=== PATIENT | female | born 1970 | race Caucasian/White ===

== ENCOUNTER 2017-05-22 17:15 | Observation (INO) | payer OTHER ==
[2017-05-22 17:23] VITALS: BMI 28.3
--- NOTE | 2017-05-22 17:24 | PDOC ---
Rapid Medical Evaluation Chief Complaint: Headache Medical Evaluation: Allergies Allergy/AdvReac Type Severity Reaction Status Date / Time No Known Allergies Allergy Verified 02/19/14 08:36 05/22/17 17:22 46 year old female occasional smoker, recently dx HTN and HLD, presenting with 3 days of unrelenting headache (unrelieved by sumatriptan rx by her doctor, no history of headaches before this), now with 30 mins of left facial numbness ( "severe") and left arm numbness ("some"). NIHSS=1 Ectopic x 3 BP 154/80 Code Alcantar activated 5:25p Discussed with Dr. Mckeon Escorted to CT To Main ED monitored bed for further eval
[2017-05-22] MEDS ORDERED: SODIUM CHLORIDE 1,000 ML IV SCH (17:30)
--- NOTE | 2017-05-22 17:49 | PDOC ---
Attending Attestation - HPI HPI: 05/22/17 20:02 The patient is a 46 year old female, with a significant past medical history of hypertension and hyperlipidemia, who presents to the emergency department with, gradual onset intermittent left sided headache for approx. 3 days and left sided facial numbness beginning 30 minutes ago. The patient states she went to her PMD for the same complaint of left sided headache on Friday (2 days ago) and was diagnosed with hypertension and prescribed sumatriptan. The patient states the left sided headache has been waxing and waning over the past couple days. However, she reports that earlier today she went to take a shower and suddenly began to feel dizzy along with left sided facial numbness which prompted her to come to the ED for evaluation. She denies any recent falls or loss of conciousness. The patient also reports a mild sternal chest discomfort that is worse with palpation. No hx similar sxs. Family hx significant for sudden in mom at age 42 for ""stroke or heart attack."" She denies recent fevers or chills. She denies recent nausea, vomit, diarrhea or constipation. She denies recent dysuria, frequency, urgency or hematuria. She denies recent palpitations or shortness of breath. She denies recent swelling or calf tenderness. Allergies: NKA Documentation prepared by Pete Bashir, acting as medical secretary for Ally Hinson MD. - Physicial Exam PE: 05/22/17 20:02 GENERAL: Awake, alert, and fully oriented, in no acute distress HEAD: No signs of trauma EYES: PERRLA, EOMI, sclera anicteric, conjunctiva clear ENT: Auricles normal inspection, hearing grossly normal, nares patent, oropharynx clear without exudates. Moist mucosa NECK: Normal ROM, supple, no lymphadenopathy, JVD, or masses LUNGS: Breath sounds equal, clear to auscultation bilaterally. No wheezes, and no crackles HEART: Regular rate and rhythm, normal S1 and S2, no murmurs, rubs or gallops. + sternal ttp inferiorly ABDOMEN: Soft, nontender, normoactive bowel sounds. No guarding, no rebound. No masses EXTREMITIES: Normal range of motion, no edema. No clubbing or cyanosis. No cords , erythema, or tenderness BACK: No midline spinal tenderness in cervical/thoracic/lumbar region NEUROLOGICAL: Normal speech, +decreased sensation L V1-V3, cranial nerves otherwise intact, negative pronator drift, 5/5 strength in all 4 extremities, normal sensation to light touch in all 4 extremities, normal cerebellar exam, normal gait, normal reflexes and tone SKIN: Warm, Dry, normal turgor, no rashes or lesions noted. <Pete Bashir - Last Filed: 05/22/17 20:02> - Resident Resident Name: Maryse Penningtonica - ED Attending Attestation I have performed the following: I have examined & evaluated the patient, The case was reviewed & discussed with the resident, I agree w/resident's findings & plan, Exceptions are as noted - Medical Decision Making 05/22/17 17:47 46yo F hx recently dx HTN p/w gradual onset L sided headache x3 days now a/w 30 mins of L facial numbness. Vitals with elevated BP. Exam with decreases sensation V1-V3. NIHSS 1. Pt evaluated by Dr. Mckeon, decision was made to hold off on TPA given low NIHSS. Likely atypical migraine although given some RF (HTN , early of pt's mother @42yo), will do a stroke work up and admit to obs. <Ally Hinson - Last Filed: 05/22/17 21:02> Discharge Disposition - Discharge Dispostion Admit: Yes <Ally Hinson - Last Filed: 05/22/17 21:02> - Diagnosis Facial numbness - Discharge Dispostion Condition at time of disposition: Stable - Referrals Referrals: Hillary Birmingham MD [Primary Care Provider] - - Patient Instructions - Post Discharge Activity Heart Score/ECG Review #1 05/22/17 19:09 Twelve-lead EKG was performed and reviewed by me. Normal sinus rhythm, rate 79. Normal axis and intervals. No ST elevations. <Ally Hinson - Last Filed: 05/22/17 21:02>
--- NOTE | 2017-05-22 18:16 | PDOC ---
History of Present Illness - General Chief Complaint: Headache Stated Complaint: MIGRAINE Time Seen by Provider: 05/22/17 17:37 - History of Present Illness Initial Comments: 05/22/17 18:12 46 y.o. female with a PMH of recently diagnosed HTN, migraines presents to ED c/ o 5 day h/o diffuse headache, L sided facial numbness as well as a 2-3 day h/o intermittent stabbing chest pain pain. Patient states her chest pain is intermittent, "stabbing" 4/10, non-radiating, unrelated to exertion, with no identifying triggering/relieving factors. She does endorse some subjective dyspnea with speaking and denies any lightheadness, palpitations. NKDA Surgical: B/L salpingectomy / to ectopic pregnancies Social: 2-3 cigarettes daily, no alcohol, social marijuana PMD:Dr. Birmingham 05/22/17 18:16 Past History - Past Medical History Allergies/Adverse Reactions: Allergies Allergy/AdvReac Type Severity Reaction Status Date / Time No Known Allergies Allergy Verified 05/22/17 17:23 Home Medications: Ambulatory Orders Sumatriptan Succinate 100 mg PO BID 05/22/17 COPD: No HTN: Yes Hypercholesterolemia: Yes Other medical history: Migrane - Suicide/Smoking/Psychosocial Hx Smoking History: Current every day smoker Number of Cigarettes Smoked Daily: 5 Information on smoking cessation initiated: Yes 'Breaking Loose' booklet given: 05/22/17 Hx Alcohol Use: No Drug/Substance Use Hx: No Substance Use Type: Marijuana Review of Systems - Review of Systems Constitutional: No: Chills, Fever HEENTM: No: Recent change in vision Respiratory: Yes: Shortness of Breath Cardiac (ROS): No: Chest Pain ABD/GI: No: Constipated, Diarrhea, Nausea, Vomiting : No: Burning, Dysuria Neurological: Yes: Headache, Numbness Psychiatric: No: Anxiety, Depression *Physical Exam - Vital Signs Last Vital Signs Temp Pulse Resp BP Pulse Ox 98.2 F 90 19 153/80 100 05/22/17 17:19 05/22/17 17:19 05/22/17 17:19 05/22/17 17:19 05/22/17 17:19 - Physical Exam General Appearance: Yes: Nourished, Appropriately Dressed HEENT: positive: EOMI, HARLEY. negative: Pharyngeal Erythema, Tonsillar Exudate, TM Bulging, TM Dull, TM Erythema Neck: positive: Trachea midline, Supple Respiratory/Chest: positive: Lungs Clear Cardiovascular: positive: S1, S2 Gastrointestinal/Abdominal: positive: Normal Bowel Sounds, Soft Musculoskeletal: positive: Other (reproducible tenderness @ subxiphoid) Extremity: positive: Normal Capillary Refill, Normal Inspection Integumentary: positive: Normal Color, Dry, Warm Neurologic: positive: Fully Oriented, Alert, Numbness (L sided facial numbness w /o facial droop), Finger to Nose, Confused ED Treatment Course - LABORATORY CBC & Chemistry Diagram: 05/22/17 18:52 05/22/17 18:52 Medical Decision Making - Medical Decision Making 05/22/17 18:17 46 y.o. female with headache, facial numbness and chest pain. Code pedroza activated in triage. NIHSS Stroke Scale 1. Head CT negative. As patient c/o chest pain, has h/o of maternal in 40's 2/2 to CVA will obtain Troponin, EKG, CXR. 05/22/17 22:16 Troponin (-) x1. Case d/w neurology, Dr. Mckeon, notes that patient's HALL likely 2/2 to Sumatriptan BID dosing, will admit patient for MRA/MRI. *DC/Admit/Observation/Transfer Diagnosis at time of Disposition: Facial numbness - Discharge Dispostion Condition at time of disposition: Stable - Referrals Referrals: Hillary Birmingham MD [Primary Care Provider] - - Patient Instructions - Post Discharge Activity
[2017-05-22] MEDS ORDERED: SODIUM CHLORIDE 1,000 ML IV STA (18:30)
[2017-05-22] MEDS ORDERED: ACETAMINOPHEN 500 MG TABLET (FP) PO ONE (18:30)
[2017-05-22] MEDS ORDERED: METOCLOPRAMIDE HCL INJECTION 10 MG/2 ML VIAL IVPUSH ONE (18:30)
[2017-05-22] MEDS ORDERED: METOCLOPRAMIDE HCL INJECTION 10 MG/2 ML VIAL ONE (18:56)
[2017-05-22] MEDS ORDERED: ACETAMINOPHEN 325 MG TABLET (FP) ONE (18:56)
[2017-05-22 19:02] LABS: BASO % 0.7 % (0-2.0); EOS % 1.8 % (0-4.5); HEMATOCRIT 41.7 % (32.4-45.2); HEMOGLOBIN 14.2 GM/dL (10.7-15.3); LYMPH % 32.6 % (8-40); MCHC 34.1 g/dl (32.0-36.0); MEAN CELL VOLUME 90.9 fl (80-96); MEAN PLT VOLUME 9.6 fl (7.5-11.1); MONO % 7.3 % (3.8-10.2); NEUT % 57.6 % (42.8-82.8); PLATELET COUNT 235 K/MM3 (134-434); RBC 4.59 M/mm3 (3.60-5.2); RDW 13.4 % (11.6-15.6); WHITE BLOOD COUNT 11.9 K/mm3 (4.0-10.0)
[2017-05-22 19:16] LABS: INR 0.96 (0.82-1.09); PROTHROMBIN TIME (PATIENT) 10.9 SEC (9.98-11.88)
[2017-05-22 19:32] LABS: ALBUMIN 3.8 g/dl (3.4-5.0); ANION GAP 6 (8-16); BILIRUBIN,TOTAL 0.4 mg/dL (0.2-1.0); BLOOD UREA NITROGEN 12 mg/dL (7-18); CALCIUM 8.4 mg/dL (8.5-10.1); CHLORIDE 108 mmol/L (98-107); CHOLESTEROL 223 mg/dL (50-200); CO2 25 mmol/L (21-32); CREATININE 0.6 mg/dL (0.55-1.02); GLUCOSE,RANDOM 87 mg/dL (74-106); LDL CHOLESTEROL (ONLY SJRH) 136 mg/dL (5-100); POTASSIUM 4.4 mmol/L (3.5-5.1); SGOT/AST 22 U/L (15-37); SGPT/ALT 44 U/L (12-78); SODIUM 139 mmol/L (136-145); TRIGLYCERIDES 282 mg/dL (35-160)
[2017-05-22 19:33] LABS: ALK PHOS 93 U/L (45-117); HDL CHOLESTEROL 49 mg/dL (40-60)
[2017-05-22] MEDS ORDERED: METOCLOPRAMIDE HCL INJECTION 10 MG/2 ML VIAL IVPUSH PRN (20:39)
--- NOTE | 2017-05-22 20:44 | HP ---
CHIEF COMPLAINT: headache with face numbness. PCP: Dr. Pop Birmingham HISTORY OF PRESENT ILLNESS: 46 yo F with PMHx of HTN, HLD and GERD who presented to the ER with, gradual onset intermittent left sided headache for approx. 3 days and subsequent left sided facial numbness . The patient states she went to her PMD for the same complaint of left sided headache on Friday (2 days ago) and was diagnosed with hypertension and migraines and prescribed amlodipine and Sumatriptan. The patient states the left sided headache has been waxing and waning over the past couple days. However, she reports that earlier today she went to take a shower and suddenly began to feel dizzy along with left sided facial numbness which prompted her to come to the ED for evaluation. HALL associated the nausea and NBNB vomiting. She denies any recent falls or loss of consciousness. The patient also reports a mild sternal chest discomfort that is worse with palpation. She denies urinary symtoms, SOB, abdominal pain, fever or chills. ER course was notable for: (1)CT head was negative for acute pathology. (2)Evaluated by Neuro. (3)MRI head and neck pending. Recent Travel:Denies PAST MEDICAL HISTORY:HTN,HLD PAST SURGICAL HISTORY:B/L salpingectomy 2/ to ectopic pregnancies Social History: Smokin-3 cigs/day Alcohol:denies Drugs: social marijuana Family History:Mother (sudden @ 42) Allergies No Known Allergies Allergy (Verified 05/22/17 17:23) HOME MEDICATIONS: Home Medications Medication Instructions Recorded Sumatriptan Succinate 100 mg PO BID 05/22/17 REVIEW OF SYSTEMS CONSTITUTIONAL: Absent: fever, chills, diaphoresis, generalized weakness, malaise, loss of appetite, weight change HEENT: +Facial Numbness. Absent: rhinorrhea, nasal congestion, throat pain, throat swelling, difficulty swallowing, mouth swelling, ear pain, eye pain, visual changes CARDIOVASCULAR: Absent: chest pain, syncope, palpitations, irregular heart rate, lightheadedness , peripheral edema RESPIRATORY: Absent: cough, shortness of breath, dyspnea with exertion, orthopnea, wheezing, stridor, hemoptysis GASTROINTESTINAL: Absent: abdominal pain, abdominal distension, nausea, vomiting, diarrhea, constipation, melena, hematochezia GENITOURINARY: Absent: dysuria, frequency, urgency, hesitancy, hematuria, flank pain, genital pain MUSCULOSKELETAL: Absent: myalgia, arthralgia, joint swelling, back pain, neck pain SKIN: Absent: rash, itching, pallor HEMATOLOGIC/IMMUNOLOGIC: Absent: easy bleeding, easy bruising, lymphadenopathy, frequent infections ENDOCRINE: Absent: unexplained weight gain, unexplained weight loss, heat intolerance, cold intolerance NEUROLOGIC: Absent: headache, focal weakness or paresthesias, dizziness, unsteady gait, seizure, mental status changes, bladder or bowel incontinence PSYCHIATRIC: Absent: anxiety, depression, suicidal or homicidal ideation, hallucinations. PHYSICAL EXAMINATION Vital Signs - 24 hr 05/22/17 05/22/17 17:19 18:00 Temperature 98.2 F Pulse Rate 90 Pulse Rate [ 79 Apical] Respiratory 19 18 Rate Blood Pressure 153/80 Blood Pressure 151/78 [Left Arm] O2 Sat by Pulse 100 99 Oximetry (%) GENERAL: AAOx3, NAD HEAD: NC/AT EYES: PERRLA, EOMI, anicteric sclera. EARS, NOSE, THROAT: Moist mucous membranes. NECK: supple, No JVD LUNGS: CTAB, No wheezing or rales. HEART: RRR, NL S1S2, no m/g/r ABDOMEN: Soft, NT/ND, NL BS, no guarding, no rebound, no masses. No hepatomegaly or splenomegaly. MUSCULOSKELETAL: No CVA tenderness. UPPER EXTREMITIES: 2+ pulses, warm, well-perfused. No cyanosis. No clubbing. No peripheral edema. LOWER EXTREMITIES: 2+ pulses, warm, well-perfused. No calf tenderness. No peripheral edema. NEUROLOGICAL: Cranial nerves II-XII intact. Normal speech. 5/5 strength Upper and lower ext. bilat. PSYCHIATRIC: Cooperative. Good eye contact. Appropriate mood and affect. Laboratory Results - last 24 hr 05/22/17 05/22/17 05/22/17 18:52 18:52 18:52 WBC 11.9 H RBC 4.59 Hgb 14.2 Hct 41.7 MCV 90.9 MCH 31.0 MCHC 34.1 RDW 13.4 Plt Count 235 D MPV 9.6 Neutrophils % 57.6 Lymphocytes % 32.6 D Monocytes % 7.3 Eosinophils % 1.8 Basophils % 0.7 PT with INR 10.90 INR 0.96 Sodium 139 Potassium 4.4 Chloride 108 H Carbon Dioxide 25 Anion Gap 6 L BUN 12 Creatinine 0.6 Creat Clearance w eGFR > 60 Random Glucose 87 Calcium 8.4 L Total Bilirubin 0.4 AST 22 ALT 44 Alkaline Phosphatase 93 Creatine Kinase 136 Troponin I < 0.02 Total Protein 7.0 Albumin 3.8 Triglycerides 282 H Cholesterol 223 H Total LDL Cholesterol 136 H HDL Cholesterol 49 Blood Type Antibody Screen 05/22/17 18:52 WBC RBC Hgb Hct MCV MCH MCHC RDW Plt Count MPV Neutrophils % Lymphocytes % Monocytes % Eosinophils % Basophils % PT with INR INR Sodium Potassium Chloride Carbon Dioxide Anion Gap BUN Creatinine Creat Clearance w eGFR Random Glucose Calcium Total Bilirubin AST ALT Alkaline Phosphatase Creatine Kinase Troponin I Total Protein Albumin Triglycerides Cholesterol Total LDL Cholesterol HDL Cholesterol Blood Type O NEGATIVE Antibody Screen Negative ASSESSMENT/PLAN: 46 yo F with PMHx of HTN and HLD presents with new onset facial numbness and placed on observation for possible CVA vs. migraine. Problem List - Problem (1) Migraine Assessment/Plan: * Neuro consult Dr. Mckeon. * triptan held * IVF with NS * Reglan 10mg Q6H PRN * Neuro checks. * CT and MRI of head negative for acute pathology. (2) Facial numbness (3) HTN (hypertension) Assessment/Plan: Will continue Amlodipine 5mg PO daily. (4) HLD (hyperlipidemia) Assessment/Plan: Statin therpy with Lipitor 40mg HS (5) DVT prophylaxis Assessment/Plan: Will initiate heparin SQ TID> Visit type - Emergency Visit Emergency Visit: Yes ED Registration Date: 05/22/17 Care time: The patient presented to the Emergency Department on the above date and was hospitalized for further evaluation of their emergent condition. - New Patient This patient is new to me today: Yes Date on this admission: 05/23/17 - Critical Care Critical Care patient: No Hospitalist Screening - Colonoscopy Questionnaire Colonoscopy Questionnaire: Colonoscopy Questionnaire - Patient: 50 - 75 years old and never had a screening colonoscopy: No History of colon or rectal polyps, or CA: No History of IBD, Crohn's disease or UC: No History of abdominal radiation therapy as a child: No - Relative: 1 with colon or rectal CA, or polyps at age 60 or younger: No Colon or rectal CA diagnosed at age 45 or younger: No Multiple relatives with colon or rectal CA: No - Outcome: Screening Result: Negative Screen
--- NOTE | 2017-05-22 22:29 | PDOC ---
NIH Stroke Scale - Initial Evaluation Level of consciousness: Alert Ask patient the month and their age: Answers both correctly Ask patient to open & close eyes; make fist and let go: Obeys both correctly Best gaze (horizontal eye movement): Normal Visual field testing: No visual field loss Facial paresis (Show teeth/raise eyebrows/close eyes tight): Normal symmetrical movement Motor Function: Left Arm: Normal Motor Function: Right Arm: Normal (extends arm 90 (or 45) degrees for 10 seconds without drift Motor Function: Left Leg: Normal (extends leg 30 degrees for 5 seconds without drift) Motor Function: Right Leg: Normal (extends leg 30 degrees for 5 seconds without drift) Limb Ataxia: No ataxia Sensory(Use pinprick test arms,legs,trunk,face/side to side): Mild to moderate decrease in sensation Best language (Describe picture, name items, read sentences): No Aphasia Dysarthria (read several words): Normal articulation Extinction and Inattention: No abnormality - Total Score NIH Stroke Scale Score: 1
[2017-05-23] MEDS: ACETAMINOPHEN 325 MG TABLET (FP) PO PRN ×3 (02:00→11:23)
--- NOTE | 2017-05-23 03:25 | PN ---
Teaching Attending Note Name of Resident: Amauri Atkinson ATTENDING PHYSICIAN STATEMENT I saw and evaluated the patient. I reviewed the resident's note and discussed the case with the resident. I agree with the resident's findings and plan as documented. SUBJECTIVE: 46F with headache worsening over past 3 days, taking triptans twice a day, now presents with L face and arm numbness OBJECTIVE: Neuro: non focal exam, Cranial nerves no defecits MRI brain MRA : no acute findings ASSESSMENT AND PLAN: 46F with continued headache and sensation of numbness on left face possibly secondary to complicated migraine. CVA ruled out follow up with Neurology in AM to optimize management of her migrain and possible discharge after.
[2017-05-23 07:18] LABS: BASO % 0.7 % (0-2.0); EOS % 1.9 % (0-4.5); HEMATOCRIT 40.6 % (32.4-45.2); HEMOGLOBIN 13.9 GM/dL (10.7-15.3); LYMPH % 26.3 % (8-40); MCHC 34.2 g/dl (32.0-36.0); MEAN CELL VOLUME 90.7 fl (80-96); MEAN PLT VOLUME 9.8 fl (7.5-11.1); MONO % 7.3 % (3.8-10.2); NEUT % 63.8 % (42.8-82.8); PLATELET COUNT 209 K/MM3 (134-434); RBC 4.48 M/mm3 (3.60-5.2); RDW 13.5 % (11.6-15.6); WHITE BLOOD COUNT 8.5 K/mm3 (4.0-10.0)
[2017-05-23 08:28] LABS: CHLORIDE 109 mmol/L (98-107); SODIUM 140 mmol/L (136-145)
[2017-05-23 08:40] LABS: ALBUMIN 3.5 g/dl (3.4-5.0); ALK PHOS 82 U/L (45-117); ANION GAP 9 (8-16); BILIRUBIN,TOTAL 0.8 mg/dL (0.2-1.0); BLOOD UREA NITROGEN 11 mg/dL (7-18); CALCIUM 8.1 mg/dL (8.5-10.1); CO2 22 mmol/L (21-32); CREATININE 0.5 mg/dL (0.55-1.02); GLUCOSE,RANDOM 93 mg/dL (74-106); MAGNESIUM 2.1 mg/dL (1.8-2.4); PHOSPHOROUS 2.7 mg/dL (2.5-4.9); SGOT/AST 14 U/L (15-37); SGPT/ALT 36 U/L (12-78); TOT PROT 6.3 g/dl (6.4-8.2)
[2017-05-23 09:12] VITALS: BP 116/73; PULSE 70; TEMP 98
[2017-05-23 09:42] LABS: URINE APPEARANCE SLCLOUDY; URINE BILIRUBIN NEGATIVE (NEGATIVE); URINE BLOOD 1+ (NEGATIVE); URINE COLOR YELLOW; URINE GLUCOSE (UA) NEGATIVE (NEGATIVE); URINE KETONE NEGATIVE (NEGATIVE); URINE LEUK ESTERASE TRACE (NEGATIVE); URINE NITRITE NEGATIVE (NEGATIVE); URINE PROTEIN NEGATIVE (NEGATIVE)
[2017-05-23 09:56] LABS: EPI CELLS MANY /HPF (FEW); URINE MUCUS RARE
[2017-05-23] MEDS ORDERED: PANTOPRAZOLE 40 MG TABLET (FP) PO SCH (10:00)
[2017-05-23] MEDS ORDERED: amLODIPine BESYLATE 5 MG TABLET (FP) PO SCH (10:00)
[2017-05-23] MEDS ORDERED: ENOXAPARIN NA (PORCINE) 40 MG/0.4 ML DISP.SYRIN SQ SCH (10:00)
--- NOTE | 2017-05-23 10:28 | EKG ---
Test Reason : Blood Pressure : / mmHG Vent. Rate : 071 BPM Atrial Rate : 071 BPM P-R Int : 174 ms QRS Dur : 086 ms QT Int : 418 ms P-R-T Axes : 054 052 042 degrees QTc Int : 454 ms NORMAL SINUS RHYTHM NORMAL ECG WHEN COMPARED WITH ECG OF 22-MAY-2017 18:52, NO SIGNIFICANT CHANGE WAS FOUND Confirmed by CLAUDE MORRIS MD ([id number]) on 05/23/2017 10:28:43 AM Referred By: Confirmed By:CLAUDE MORRIS MD
--- NOTE | 2017-05-23 10:40 | EKG ---
Test Reason : Blood Pressure : / mmHG Vent. Rate : 079 BPM Atrial Rate : 079 BPM P-R Int : 178 ms QRS Dur : 090 ms QT Int : 412 ms P-R-T Axes : 016 037 025 degrees QTc Int : 472 ms NORMAL SINUS RHYTHM NO PREVIOUS ECGS AVAILABLE Confirmed by CLAUDE MORRIS MD ([id number]) on 05/23/2017 10:40:02 AM Referred By: Confirmed By:CLAUDE MORRIS MD
--- NOTE | 2017-05-23 12:16 | PN ---
Progress Note, Physician Chief Complaint: patient seen and examined says he facial numbness slightly better but still has HALL awaiting neurology to see her wants to go home - Current Medication List Current Medications: Active Medications Acetaminophen (Tylenol -) 650 mg PO Q4H PRN PRN Reason: PAIN Last Admin: 05/23/17 11:23 Dose: 650 mg Amlodipine Besylate (Norvasc -) 5 mg PO DAILY [facility] Last Admin: 05/23/17 09:20 Dose: 5 mg Enoxaparin Sodium (Lovenox -) 40 mg SQ DAILY [facility] Last Admin: 05/23/17 09:19 Dose: 40 mg Metoclopramide HCl (Reglan Injection -) 10 mg IVPUSH Q6H PRN PRN Reason: NAUSEA AND/OR VOMITING Pantoprazole Sodium (Protonix -) 40 mg PO DAILY [facility] Last Admin: 05/23/17 09:20 Dose: 40 mg - Objective Vital Signs: Vital Signs Temperature 98 F 05/23/17 09:00 Pulse Rate 70 05/23/17 09:00 Respiratory Rate 20 05/23/17 09:00 Blood Pressure 116/73 05/23/17 09:00 O2 Sat by Pulse Oximetry (%) 99 05/22/17 18:00 Constitutional: Yes: Calm Neck: Yes: Trachea Midline Cardiovascular: Yes: Regular Rate and Rhythm, S1, S2 Respiratory: Yes: CTA Bilaterally Gastrointestinal: Yes: Normal Bowel Sounds, Soft Edema: No Neurological: Yes: Alert, Oriented, Other (facial sensation same on both sides motor strenght is intact,) Labs: CBC, BMP 05/23/17 06:15 05/23/17 06:15 INR, PTT INR 0.96 (0.82-1.09) 05/22/17 18:52 Problem List - Problems (1) Facial numbness Assessment/Plan: awaiting neurology input MRI/MRA negative Code(s): R20.0 - ANESTHESIA OF SKIN (2) Migraine Assessment/Plan: neurology evaluation once seen by neurology lil[place] home later today Code(s): G43.909 - MIGRAINE, UNSP, NOT INTRACTABLE, WITHOUT STATUS MIGRAINOSUS Qualifiers: Migraine type: without aura Status migrainosus presence: without status migrainosus Intractability: not intractable Qualified Code(s): G43.009 - Migraine without aura, not intractable, without status migrainosus (3) HTN (hypertension) Assessment/Plan: [facility] Code(s): I10 - ESSENTIAL (PRIMARY) HYPERTENSION Qualifiers: Hypertension type: essential hypertension Qualified Code(s): I10 - Essential (primary) hypertension
--- NOTE | 2017-05-23 13:31 | DS ---
Physical Examination Vital Signs: Vital Signs Temperature 98 F 05/23/17 09:00 Pulse Rate 70 05/23/17 09:00 Respiratory Rate 20 05/23/17 09:00 Blood Pressure 116/73 05/23/17 09:00 O2 Sat by Pulse Oximetry (%) 99 05/22/17 18:00 Cardiovascular: Yes: Regular Rate and Rhythm, S1, S2 Respiratory: Yes: CTA Bilaterally Gastrointestinal: Yes: Normal Bowel Sounds, Soft Edema: No Neurological: Yes: Alert, Oriented Labs: CBC, BMP 05/23/17 06:15 05/23/17 06:15 Discharge Summary Reason For Visit: NUMBNESS OF FACE Current Active Problems DVT prophylaxis (Acute) Facial numbness (Acute) HLD (hyperlipidemia) (Acute) HTN (hypertension) (Acute) Migraine (Acute) Hospital Course: CHIEF COMPLAINT: headache with face numbness. PCP: Dr. Pop Birmingham HISTORY OF PRESENT ILLNESS: 46 yo F with PMHx of HTN, HLD and GERD who presented to the ER with, gradual onset intermittent left sided headache for approx. 3 days and subsequent left sided facial numbness . The patient states she went to her PMD for the same complaint of left sided headache on Friday (2 days ago) and was diagnosed with hypertension and migraines and prescribed amlodipine and Sumatriptan. The patient states the left sided headache has been waxing and waning over the past couple days. However, she reports that earlier today she went to take a shower and suddenly began to feel dizzy along with left sided facial numbness which prompted her to come to the ED for evaluation. HALL associated the nausea and NBNB vomiting. She denies any recent falls or loss of consciousness. The patient also reports a mild sternal chest discomfort that is worse with palpation. She denies urinary symtoms, SOB, abdominal pain, fever or chills. ER course was notable for: (1)CT head was negative for acute pathology. (2)Evaluated by Neuro. (3)MRI head and neck pending. Recent Travel:Denies PAST MEDICAL HISTORY:HTN,HLD PAST SURGICAL HISTORY:B/L salpingectomy 2/ to ectopic pregnancies patient got MRI/MRA of head and neck and was negative was supposed to see neurology put just walked out Condition: Stable - Instructions Referrals: Hillary Birmingham MD [Primary Care Provider] - Disposition: ELOPED - Home Medications Comprehensive Discharge Medication List: Ambulatory Orders Amlodipine Besylate 5 mg PO DAILY 05/22/17 Omeprazole 40 mg PO DAILY 05/22/17 Sumatriptan Succinate 100 mg PO BID 05/22/17
[2017-05-23] MEDS ORDERED: OMEGA-3 ACID ETHYL ESTERS (FATTY-ACIDS) 1 GM CAPSULE (FP) PO SCH (22:00)
== END 2017-05-23 13:38 | disposition left against medical advice (07) ==
LOC: JER 17:15 → JERBED 21:02 → J4S 05-23 02:06 → J4W 05-23 12:41
PROVIDERS: ADMIT Internal Medicine; ATTEND Internal Medicine
PROC: 3E033GC Introduction of Other Therapeutic Substance into Peripheral Vein, Percutaneous Approach (ICD-10-PCS; principal; 2017-05-22)
PROC: 3E013GC Introduction of Other Therapeutic Substance into Subcutaneous Tissue, Percutaneous Approach (ICD-10-PCS; 2017-05-22)
PROC: 3E0337Z Introduction of Electrolytic and Water Balance Substance into Peripheral Vein, Percutaneous Approach (ICD-10-PCS; 2017-05-22)
DX: R20.0 Anesthesia of skin (principal); G43.909 Migraine, unspecified, not intractable, without status migrainosus; I10 Essential (primary) hypertension; E78.5 Hyperlipidemia, unspecified
CPT/HCPCS: 36415; 70450-TC; 70544-TC; 70547-TC; 70551-TC; 80053; 81003; 81015; 82465; 82550; 83718; 83721; 83735; 84100; 84478; 84484; 84703; 85025; 85610; 86850; 86900; 86901; 93005; 93010; 96361; 96372; 96374; 99285-25; G0378; J7030

== ENCOUNTER 2018-09-06 10:36 | Observation (INO) | payer OTHER ==
[2018-09-06 10:44] VITALS: BMI 30.7
--- NOTE | 2018-09-06 10:47 | PDOC ---
Attending Attestation - Resident Resident Name: Naty Pennington - ED Attending Attestation I have performed the following: I have examined & evaluated the patient, The case was reviewed & discussed with the resident, I agree w/resident's findings & plan, Exceptions are as noted - HPI HPI: 09/06/18 11:32 48yo female with hx of smoking tobacco and htn presents with cp that woke her up this am. CP assoc with radiation to R arm and back, sob, diaphoresis (clammy feeling) and 8 episodes of nbnb vomiting. Pt states she still has cp and feels nauseated. Pt denies pleuritic component. States she saw her PMD Dr. Santos a month ago for palpitation/fluttering sensation and told to see a card lacer jacquard. Pt states she ate m[place] food last night, ate the same thing and is not sick. CP started before the vomiting. Pt states pain goes straight to her back, pressure sensation. Fam hx of mother of UT in her early 40s and father of UT at 70. Pt denies abd pain. Had normal bm today. No pain to jaw or neck. 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
--- NOTE | 2018-09-06 10:47 | PDOC ---
History of Present Illness - General Chief Complaint: Nausea/Vomiting Stated Complaint: CHEST PAIN Time Seen by Provider: 09/06/18 10:46 History Source: Patient - History of Present Illness Initial Comments: 09/06/18 11:01 The patient is a 48 year old female with a PMH of HTN, Migraines, GERD and Anxiety who presents to the ED c/o acute onset of chest pain with vomiting. Pain started at 7 a.m. this morning and is L sided, pressure-like and radiates to her back. Pain is improved when patient stands upright and leans forward. Endorses intermittent shortness of breath. No previous h/o evaluation by a infection control nurse, but states she was given a referral to a infection control nurse because she sometimes feel like her heart beat is not normal. Smokes 7 cigarettes daily. Family history significant for maternal from [place] @ age 42. NKDA Surgical: B/L tubal removal s/p ectopic Social: daily cigarettes, daily marijuana PMD: Dr. Valarie Santos Past History - Past Medical History Allergies/Adverse Reactions: Allergies Allergy/AdvReac Type Severity Reaction Status Date / Time No Known Allergies Allergy Verified 05/22/17 17:23 Home Medications: Ambulatory Orders Amlodipine Besylate 5 mg PO DAILY 05/22/17 Omeprazole 40 mg PO DAILY 05/22/17 Sumatriptan Succinate 100 mg PO BID 05/22/17 COPD: No GI Disorders: Yes (GERD) HTN: Yes Hypercholesterolemia: Yes - Suicide/Smoking/Psychosocial Hx Smoking History: Current every day smoker Number of Cigarettes Smoked Daily: 7 Information on smoking cessation initiated: No 'Breaking Loose' booklet given: 05/22/17 Hx Alcohol Use: No Drug/Substance Use Hx: No Substance Use Type: Marijuana Review of Systems - Review of Systems Constitutional: No: Chills, Fever HEENTM: No: Recent change in vision Respiratory: Yes: Shortness of Breath Cardiac (ROS): Yes: Chest Pain ABD/GI: Yes: Nausea, Vomiting. No: Constipated, Diarrhea *Physical Exam - Vital Signs Last Vital Signs Temp Pulse Resp BP Pulse Ox 97.8 F 67 18 169/87 99 09/06/18 10:41 09/06/18 10:41 09/06/18 10:41 09/06/18 10:41 09/06/18 10:41 - Physical Exam General Appearance: Yes: Nourished, Appropriately Dressed HEENT: positive: Normal Voice, Hearing Grossly Normal Neck: positive: Trachea midline, Supple Respiratory/Chest: positive: Lungs Clear, Normal Breath Sounds. negative: Labored Respiration, Rapid RR, Wheezing Cardiovascular: positive: S1, S2. negative: Edema, Murmur Vascular Pulses: Dorsalis-Pedis (R): 2+, Doralis-Pedis (L): 0 Gastrointestinal/Abdominal: positive: Normal Bowel Sounds, Soft Musculoskeletal: negative: CVA Tenderness (R), CVA Tenderness (L) Extremity: positive: Normal Capillary Refill, Normal Inspection, Normal Range of Motion Integumentary: positive: Normal Color, Dry, Warm Neurologic: positive: patient services coordinator II-XII NML intact, Fully Oriented, Alert Heart Score/ECG Review - ECG Impressions Comment:: 09/06/18 12:06 HR 61, normal intervals, no deviations, no RYANNE/STD/TWI - non-ischemic EKG ED Treatment Course - LABORATORY CBC & Chemistry Diagram: 09/06/18 11:15 09/06/18 11:15 Medical Decision Making - Medical Decision Making 09/06/18 11:06 48 year old female with acute onset of chest pain that radiates to her back BP symmetrical w/in 20 mm Hg in B/L UE Will obtain CTA chest to r/o Aortic Dissection, 09/06/18 11:10 EKG non-ischemic as documtented in EKG section of EMR 09/06/18 12:05 Troponin (-) x1 09/06/18 12:10 Patient reassessed @ bedside Symptomatically improved, however still c/o nausea 09/06/18 15:04 My read of CTA shows no aortic dissection At this time, patient HDS, Heart Score 5, requires admission for serial troponins, cardiac evaluation including [facility]. Hospitalist paged for admission 09/06/18 15:11 Case d/w Dr. Cook, will admit OBS Tele 09/06/18 15:18 Patient reassessed @ bedside Amenable to admission Clinical Impression: Chest Pain, possibly 2/2 to ACS vs. Anginal picture 09/06/18 16:19 Patient evaluated by Hospitalist in ED, states she wishes to AMA. 09/06/18 16:23 The patient is clinically sober, free from distracting injury, appears to have intact insight and judgment and reason and in my opinion has the capacity to make decisions. The patient presents with chest pain. I have explained that I am concerned that this may represent a heart attack,she has verbalized an understanding of my concerns. I have discussed the need for admission to get more information about potential causes of the patients chest pain. I have told the patient that if she leaves and has worsening cgest, she could get much worse, could become critically ill, and could possibly become disabled or . I have asked her to stay in the hospital for monitoring. The patient is refusing any further care and is leaving against medical advice. I am unable to convince the patient to stay, I have asked her to return as soon as possible to complete her evaluation. I have answered all of patient's questions. *DC/Admit/Observation/Transfer Diagnosis at time of Disposition: Chest pain - Discharge Dispostion Disposition: AGAINST MEDICAL ADVICE Condition at time of disposition: Stable Decision to Admit order: No - Referrals - Patient Instructions - Post Discharge Activity
[2018-09-06] MEDS ORDERED: MORPHINE SULFATE 2 MG/ML VIAL ONE (11:37)
[2018-09-06] MEDS ORDERED: ONDANSETRON 4 MG/2 ML VIAL ONE (11:39)
[2018-09-06] MEDS: SODIUM CHLORIDE 0.9% 500 ML INFUS.BAG IV ONE ×2 (11:40→15:45)
[2018-09-06 11:45] LABS: BASO % 0.6 % (0-2.0); EOS % 0.8 % (0-4.5); HEMOGLOBIN 14.5 GM/dL (10.7-15.3); LYMPH % 22.7 % (8-40); MCH 30.2 pg (25.7-33.7); MCHC 33.6 g/dl (32.0-36.0); MEAN CELL VOLUME 89.8 fl (80-96); MONO % 4.1 % (3.8-10.2); NEUT % 71.8 % (42.8-82.8); RBC 4.79 M/mm3 (3.60-5.2); RDW 13.3 % (11.6-15.6); WHITE BLOOD COUNT 14.4 K/mm3 (4.0-10.0)
[2018-09-06 11:47] LABS: PLATELET COUNT 211 K/MM3 (134-434)
[2018-09-06 11:48] LABS: ALBUMIN 3.7 g/dl (3.4-5.0); ALK PHOS 106 U/L (45-117); ANION GAP 6 MMOL/L (8-16); BILIRUBIN,TOTAL 0.2 mg/dL (0.2-1); BLOOD UREA NITROGEN 9.8 mg/dL (7-18); CHLORIDE 108 mmol/L (98-107); CO2 26 mmol/L (21-32); CREATININE 0.7 mg/dL (0.55-1.3); GLUCOSE,RANDOM 98 mg/dL (74-106); POTASSIUM 4.2 mmol/L (3.5-5.1); SGOT/AST 16 U/L (15-37); SGPT/ALT 39 U/L (13-61); SODIUM 140 mmol/L (136-145); TOT PROT 6.7 g/dl (6.4-8.2)
[2018-09-06] MEDS: morphine CARPU-JECT 2 MG/1 ML DISP.SYRIN IVPUSH ONE ×2 (11:48→15:44)
[2018-09-06] MEDS: ONDANSETRON 4 MG/2 ML VIAL IVPUSH ONE ×4 (11:50→15:45)
[2018-09-06] MEDS: FAMOTIDINE 20 MG/50 ML IVPB 20 MG/50 ML MG IVPB ONE ×2 (11:53→15:45)
[2018-09-06 12:05] LABS: INR 0.9 (0.83-1.09); PROTHROMBIN TIME (PATIENT) 10.6 SEC (9.7-13.0)
[2018-09-06] MEDS ORDERED: ASPIRIN 81 MG CHEWABLE TABLETS PO ONE (15:25)
[2018-09-06] MEDS ORDERED: ASPIRIN COATED 81 MG TABLET.EC ONE (15:48)
[2018-09-06 16:15] VITALS: BP 150/86; PULSE 57; TEMP 98.6
--- NOTE | 2018-09-06 16:25 | HP ---
CHIEF COMPLAINT: chest pains for few days PCP:dr rodriguez HISTORY OF PRESENT ILLNESS: The patient is a 48 year old female with a PMH of HTN, Migraines, GERD and Anxiety who presents to the ED c/o acute onset of chest pain with vomiting. Pain started at 7 a.m. this morning and is L sided, pressure-like and radiates to her back. Pain is improved when patient stands upright and leans forward. Endorses intermittent shortness of breath. No previous h/o evaluation by a care program director, but states she was given a referral to a care program director because she sometimes feel like her heart beat is not normal. Smokes 7 cigarettes daily. Family history significant for maternal from [place] @ age 42. She is pain free at this time ER course was notable for: (1)chest pains (2)normal cardiac enzymes (3)f/h of heart disease Recent Travel:none PAST MEDICAL HISTORY: The patient is a 48 year old female with a PMH of HTN, Migraines, GERD and Anxiety r PAST SURGICAL HISTORY: none Social History: Smoking:yes Alcohol:social Drugs: none Family History:mother at the age of 42 with heart problem Allergies No Known Allergies Allergy (Verified 05/22/17 17:23) HOME MEDICATIONS: Home Medications Medication Instructions Recorded Amlodipine Besylate 5 mg PO DAILY 05/22/17 Omeprazole 40 mg PO DAILY 05/22/17 Sumatriptan Succinate 100 mg PO BID 05/22/17 REVIEW OF SYSTEMS CONSTITUTIONAL: Absent: fever, chills, diaphoresis, generalized weakness, malaise, loss of appetite, weight change HEENT: Absent: rhinorrhea, nasal congestion, throat pain, throat swelling, difficulty swallowing, mouth swelling, ear pain, eye pain, visual changes CARDIOVASCULAR: Absent: chest pain, syncope, palpitations, irregular heart rate, lightheadedness , peripheral edema RESPIRATORY: Absent: cough, shortness of breath, dyspnea with exertion, orthopnea, wheezing, stridor, hemoptysis GASTROINTESTINAL: Absent: abdominal pain, abdominal distension, nausea, vomiting, diarrhea, constipation, melena, hematochezia GENITOURINARY: Absent: dysuria, frequency, urgency, hesitancy, hematuria, flank pain, genital pain MUSCULOSKELETAL: Absent: myalgia, arthralgia, joint swelling, back pain, neck pain SKIN: Absent: rash, itching, pallor HEMATOLOGIC/IMMUNOLOGIC: Absent: easy bleeding, easy bruising, lymphadenopathy, frequent infections ENDOCRINE: Absent: unexplained weight gain, unexplained weight loss, heat intolerance, cold intolerance NEUROLOGIC: Absent: headache, focal weakness or paresthesias, dizziness, unsteady gait, seizure, mental status changes, bladder or bowel incontinence PSYCHIATRIC: Absent: anxiety, depression, suicidal or homicidal ideation, hallucinations. PHYSICAL EXAMINATION Vital Signs - 24 hr 09/06/18 09/06/18 10:41 16:14 Temperature 97.8 F 98.6 F Pulse Rate 67 Pulse Rate [ 57 L Left Apical] Respiratory 18 16 Rate Blood Pressure 169/87 Blood Pressure 150/86 [Right Arm] O2 Sat by Pulse 99 97 Oximetry (%) GENERAL: Awake, alert, and fully oriented, in no acute distress. HEAD: Normal with no signs of trauma. EYES: Pupils equal, round and reactive to light, extraocular movements intact, sclera anicteric, conjunctiva clear. No lid lag. EARS, NOSE, THROAT: Ears normal, nares patent, oropharynx clear without exudates. Moist mucous membranes. NECK: Normal range of motion, supple without lymphadenopathy, JVD, or masses. LUNGS: Breath sounds equal, clear to auscultation bilaterally. No wheezes, and no crackles. No accessory muscle use. HEART: Regular rate and rhythm, normal S1 and S2 without murmur, rub or gallop. ABDOMEN: Soft, nontender, not distended, normoactive bowel sounds, no guarding, no rebound, no masses. No hepatomegaly or splenomegaly. MUSCULOSKELETAL: Normal range of motion at all joints. No bony deformities or tenderness. No CVA tenderness. UPPER EXTREMITIES: 2+ pulses, warm, well-perfused. No cyanosis. No clubbing. No peripheral edema. LOWER EXTREMITIES: 2+ pulses, warm, well-perfused. No calf tenderness. No peripheral edema. NEUROLOGICAL: Cranial nerves II-XII intact. Normal speech. Normal gait. PSYCHIATRIC: Cooperative. Good eye contact. Appropriate mood and affect. SKIN: Warm, dry, normal turgor, no rashes or lesions noted, normal capillary refill. Laboratory Results - last 24 hr 09/06/18 09/06/18 09/06/18 11:15 11:15 11:15 WBC 14.4 H RBC 4.79 Hgb 14.5 Hct 43.0 MCV 89.8 MCH 30.2 MCHC 33.6 RDW 13.3 Plt Count 211 MPV 10.0 Absolute Neuts (auto) 10.3 H Neutrophils % 71.8 Lymphocytes % 22.7 Monocytes % 4.1 Eosinophils % 0.8 Basophils % 0.6 Nucleated RBC % 0 PT with INR INR Sodium 140 Potassium 4.2 Chloride 108 H Carbon Dioxide 26 Anion Gap 6 L BUN 9.8 Creatinine 0.7 Est GFR (CKD-EPI)AfAm 118.74 Est GFR (CKD-EPI)NonAf 102.45 Random Glucose 98 Calcium 10.0 Total Bilirubin 0.2 AST 16 ALT 39 Alkaline Phosphatase 106 Creatine Kinase 100 Troponin I < 0.02 Total Protein 6.7 Albumin 3.7 Serum , Qual Negative 09/06/18 11:40 WBC RBC Hgb Hct MCV MCH MCHC RDW Plt Count MPV Absolute Neuts (auto) Neutrophils % Lymphocytes % Monocytes % Eosinophils % Basophils % Nucleated RBC % PT with INR 10.60 INR 0.90 Sodium Potassium Chloride Carbon Dioxide Anion Gap BUN Creatinine Est GFR (CKD-EPI)AfAm Est GFR (CKD-EPI)NonAf Random Glucose Calcium Total Bilirubin AST ALT Alkaline Phosphatase Creatine Kinase Troponin I Total Protein Albumin Serum , Qual ASSESSMENT/PLAN: ches pain -pt has multiple risk factors , will admit for observation and will call cardiac consult if stress test positive pt is thinking about going home ama discussed the dangers with her start aspirin stress test am Htn -norvasc to continue Smoking cessation -discussed with patient about stop smoking. Visit type - Emergency Visit Emergency Visit: Yes ED Registration Date: 09/06/18 Care time: The patient presented to the Emergency Department on the above date and was hospitalized for further evaluation of their emergent condition. - New Patient This patient is new to me today: Yes Date on this admission: 09/06/18 - Critical Care Critical Care patient: No
[2018-09-06] MEDS ORDERED: ASPIRIN 81 MG CHEWABLE TABLETS PO SCH (16:30)
--- NOTE | 2018-09-06 18:32 | DS ---
Physical Exam: SUBJECTIVE: Patient seen and examined she is admitted for chest pains 1st set of enzymes are negative , ct of chest is negative and cxr OBJECTIVE: Vital Signs Period Temp Pulse Resp BP Sys/Weber Pulse Ox Last 24 Hr 97.8 F-98.6 F 57-67 16-18 150-169/86-87 97-99 LABS Laboratory Results - last 24 hr 09/06/18 09/06/18 09/06/18 11:15 11:15 11:15 WBC 14.4 H RBC 4.79 Hgb 14.5 Hct 43.0 MCV 89.8 MCH 30.2 MCHC 33.6 RDW 13.3 Plt Count 211 MPV 10.0 Absolute Neuts (auto) 10.3 H Neutrophils % 71.8 Lymphocytes % 22.7 Monocytes % 4.1 Eosinophils % 0.8 Basophils % 0.6 Nucleated RBC % 0 PT with INR INR Sodium 140 Potassium 4.2 Chloride 108 H Carbon Dioxide 26 Anion Gap 6 L BUN 9.8 Creatinine 0.7 Est GFR (CKD-EPI)AfAm 118.74 Est GFR (CKD-EPI)NonAf 102.45 Random Glucose 98 Calcium 10.0 Total Bilirubin 0.2 AST 16 ALT 39 Alkaline Phosphatase 106 Creatine Kinase 100 Troponin I < 0.02 Total Protein 6.7 Albumin 3.7 Serum , Qual Negative 09/06/18 11:40 WBC RBC Hgb Hct MCV MCH MCHC RDW Plt Count MPV Absolute Neuts (auto) Neutrophils % Lymphocytes % Monocytes % Eosinophils % Basophils % Nucleated RBC % PT with INR 10.60 INR 0.90 Sodium Potassium Chloride Carbon Dioxide Anion Gap BUN Creatinine Est GFR (CKD-EPI)AfAm Est GFR (CKD-EPI)NonAf Random Glucose Calcium Total Bilirubin AST ALT Alkaline Phosphatase Creatine Kinase Troponin I Total Protein Albumin Serum , Qual HOSPITAL COURSE: she has normal ct and cardiac enzymes , ordered in hospital for stress test and but she refuses to stay and wanted to leave against medical advise and explained the risks and she refuses to stay and signed AMA Date of Admission:09/06/18 Date of Discharge: 09/06/18 Minutes to complete discharge: 30 Discharge Summary Reason For Visit: CHEST PAIN Current Active Problems Chest pain (Acute) Condition: Stable - Instructions - Home Medications Comprehensive Discharge Medication List: Ambulatory Orders Amlodipine Besylate 5 mg PO DAILY 05/22/17 Omeprazole 40 mg PO DAILY 05/22/17 Sumatriptan Succinate 100 mg PO BID 05/22/17 This patient is new to me today: Yes Date on this admission: 09/06/18 Emergency Visit: Yes ED Registration Date: 09/06/18 Care time: The patient presented to the Emergency Department on the above date and was hospitalized for further evaluation of their emergent condition. Critical Care patient: No - Discharge Referral Referred to [facility] No
--- NOTE | 2018-09-07 00:14 | EKG ---
Test Reason : Blood Pressure : / mmHG Vent. Rate : 061 BPM Atrial Rate : 061 BPM P-R Int : 170 ms QRS Dur : 090 ms QT Int : 402 ms P-R-T Axes : 006 045 016 degrees QTc Int : 404 ms NORMAL SINUS RHYTHM NORMAL ECG WHEN COMPARED WITH ECG OF 23-MAY-2017 08:52, NO SIGNIFICANT CHANGE WAS FOUND Confirmed by MD Talbot Edward ([id number]) on 09/07/2018 12:14:17 AM Referred By: Confirmed By:Isaias Talbot MD
[2018-09-07] MEDS ORDERED: amLODIPine BESYLATE 5 MG TABLET (FP) PO SCH (10:00)
[2018-09-07] MEDS ORDERED: PANTOPRAZOLE 40 MG TABLET (FP) PO SCH (10:00)
== END 2018-09-06 16:34 | disposition left against medical advice (07) ==
LOC: JER 10:36 → JERBED 15:13
PROVIDERS: ADMIT Internal Medicine; ATTEND Internal Medicine
DX: R07.9 Chest pain, unspecified (principal); I10 Essential (primary) hypertension; K21.9 Gastro-esophageal reflux disease without esophagitis; F41.9 Anxiety disorder, unspecified; E78.00 Pure hypercholesterolemia, unspecified; F17.210 Nicotine dependence, cigarettes, uncomplicated; Z86.69 Personal history of other diseases of the nervous system and sense organs
CPT/HCPCS: 36415; 71045-TC-FY; 71275-TC; 74175-TC; 80053; 82550; 84484; 84703; 85025; 85610; 93005; 93010; 99283-25; G0378

== ENCOUNTER 2018-09-10 00:46 | Emergency (ER) | payer OTHER ==
[2018-09-10 01:08] VITALS: BP 167/78; PULSE 76; TEMP 97.8; BMI 29.9
--- NOTE | 2018-09-10 02:02 | PDOC ---
Attending Attestation - Resident Resident Name: Lucas Vines - ED Attending Attestation I have performed the following: I have examined & evaluated the patient, The case was reviewed & discussed with the resident, I agree w/resident's findings & plan - HPI HPI: 09/10/18 05:26 48-year-old female with complaints of chest pain Patient had similar complaints recently and signed out AMA from the hospital She did see cardiology today does have an outpatient stress test ordered - Physicial Exam PE: 09/10/18 05:28 agree with resident exam - Medical Decision Making 09/10/18 05:29 48-year-old female with chest pain Patient was advised to stay for observation due to persistent symptoms and inability to get stress test due to insurance issues She is again leaving prior to full evaluation and was given verbal instructions as to risks of incomplete workup and potential diagnoses
--- NOTE | 2018-09-10 02:19 | PDOC ---
History of Present Illness - General Chief Complaint: Chest Pain Stated Complaint: CHEST PAIN - History of Present Illness Initial Comments: The pt is a 48F w/ a history of tobacco use, HTN, and FHx of cardiac dz who presents for evaluation of epigastric/chest discomfort that is intermittent, worse with laying, sometimes worse with food, associated w/ nausea and decreased excise tolerance. She denies fevers/chills, SOB, V/C/D, dysuria, hematuria, or blood in her stool. She has not tried taking anything for her symptoms. The states she was evaluated by her Bartenders today, Dr. Carvalho. She is pending approval for an outpt stress test and reports recent ECGs and ECHO was unremarkable. 09/10/18 01:57 Past History - Past Medical History Allergies/Adverse Reactions: Allergies Allergy/AdvReac Type Severity Reaction Status Date / Time No Known Allergies Allergy Verified 09/10/18 01:07 Home Medications: Ambulatory Orders Amlodipine Besylate 5 mg PO DAILY 05/22/17 COPD: No GI Disorders: Yes (GERD) HTN: Yes Hypercholesterolemia: Yes - Suicide/Smoking/Psychosocial Hx Smoking History: Never smoked Have you smoked in the past 12 months: No Number of Cigarettes Smoked Daily: 7 Information on smoking cessation initiated: No 'Breaking Loose' booklet given: 05/22/17 Hx Alcohol Use: No Drug/Substance Use Hx: No Substance Use Type: Marijuana Review of Systems - Review of Systems Able to Perform ROS?: Yes Comments:: GENERAL/CONSTITUTIONAL: No fever or chills. No weakness HEAD, EYES, EARS, NOSE AND THROAT: No change in vision. No ear pain or discharge. No sore throat CARDIOVASCULAR: +CP, SOB, DE GUZMAN RESPIRATORY: Denies cough, hemoptysis GASTROINTESTINAL: No vomiting, diarrhea or constipation GENITOURINARY: No dysuria, frequency, or change in urination MUSCULOSKELETAL: No new/acute joint or muscle swelling or pain SKIN: No rash NEUROLOGIC: No vertigo, loss of consciousness, or change in strength/sensation ENDOCRINE: No increased thirst. No abnormal weight change ALLERGIC/IMMUNOLOGIC: No hives or skin allergy Is the patient limited [place] proficient: No *Physical Exam - Vital Signs Last Vital Signs Temp Pulse Resp BP Pulse Ox 97.8 F 76 18 167/78 99 09/10/18 01:07 09/10/18 01:07 09/10/18 01:07 09/10/18 01:07 09/10/18 01:07 - Physical Exam Comments: GENERAL: Awake, alert, and oriented to person/place/time, in no acute distress HEAD: No signs of trauma, normocephalic, atraumatic EYES: PERRLA, EOMI, sclera anicteric, conjunctiva clear ENT: Hearing grossly normal, nares patent, oropharynx clear without exudates. Moist mucosa LUNGS: No distress, speaks in full sentences, clear to auscultation bilaterally HEART: Regular rate and rhythm, normal S1 and S2, no murmurs appreciated, peripheral pulses normal and equal bilaterally ABDOMEN: Soft, protuberant, nontender, normoactive bowel sounds. No guarding, no rebound EXTREMITIES: Normal inspection, Normal range of motion, no edema. No clubbing or cyanosis NEUROLOGICAL: Cranial nerves II through XII grossly intact. Normal speech, normal gait, no focal sensorimotor deficits SKIN: Warm, Dry ED Treatment Course - LABORATORY CBC & Chemistry Diagram: 09/10/18 02:05 09/10/18 02:05 Medical Decision Making - Medical Decision Making The pt is a 48F w/ a history of tobacco use, HTN, and FHx of cardiac dz who presents for evaluation of chest pain/epigastric pain concerning for ACS Leukocytosis to 16, afebrile, non-tachy No anemia Lytes wnl No MINDI Trop I neg LFTs unremarkable Pt refused CXR and does not wish to stay for observation at this time. Note: The patient insists on leaving the emergency dept and is signing out against medical advice. The patient understands the risks and complications that may result from the refusal of medical care and admission which includes and permanent disability. The patient has the mental capacity of understanding the risks of refusing care and is capable of making an informed decision. The patient was instructed to return to the emergency department should she change her mind regarding medical care or should her condition worsen. The patient signed the Against Medical Advice form. Pt given Cardiology and GI referral Instructions and return precautions given Dispo: TIEN 09/10/18 05:10 *DC/Admit/Observation/Transfer Diagnosis at time of Disposition: Abdominal pain Qualifiers: Abdominal location: epigastric Qualified Code(s): R10.13 - Epigastric pain Chest pain Qualifiers: Chest pain type: unspecified Qualified Code(s): R07.9 - Chest pain, unspecified - Discharge Dispostion Disposition: AGAINST MEDICAL ADVICE Condition at time of disposition: Stable Decision to Admit order: No - Referrals Referrals: Valarie Santos MD [Primary Care Provider] - Anusha Carvalho MD [Staff Physician] - Hugo Ernst DO [Staff Physician] - - Patient Instructions Printed Discharge Instructions: DI for Gastroesophageal Reflux Disease (GERD), DI for Atypical Chest Pain Additional Instructions: You were seen in the Emergency Department for evaluation of abdominal/chest pain. The labs obtained were notable for a slight elevation of your WBCs which can be indicative of infection. Your electrolytes were unremarkable. Please maintain your follow up with Cardiology. Review the handouts provided. Avoid spicy foods, milk, heavily spiced foods, laying down shortly after meals. Return to the Emergency Department if you develop fevers/chills, chest pain, trouble breathing, worsening pain, inability to tolerate food, blood in your stool or urine, worsening symptoms, or any new/concerning symptoms. - Post Discharge Activity
[2018-09-10] MEDS ORDERED: ONDANSETRON 4 MG/2 ML VIAL IVPUSH ONE (02:43)
[2018-09-10] MEDS ORDERED: MAG HYDROX/AL HYDROX/SIMETH -MYLANTA- ORAL SUSPENSION PO ONE (02:43)
[2018-09-10] MEDS ORDERED: LACTATED RINGERS SOLUTION 1000 ML INFUS.BAG IV ONE (02:43)
[2018-09-10] MEDS ORDERED: FAMOTIDINE 20 MG/50 ML IVPB 20 MG/50 ML MG IVPB ONE ×2 (02:43→02:58)
[2018-09-10] MEDS ORDERED: ACETAMINOPHEN 1000 MG/100 ML VIAL (NON FORMULARY) IVPB ONE (02:43)
[2018-09-10] MEDS ORDERED: MAG HYDROX/AL HYDROX/SIMETH 30 ML UNIT-DOSE CUP ONE (02:57)
[2018-09-10] MEDS ORDERED: ACETAMINOPHEN INJECTION 100 ML IVPB ONE (02:57)
[2018-09-10 02:58] LABS: BASO % 1.3 % (0-2.0); EOS % 1.1 % (0-4.5); HEMATOCRIT 43.1 % (32.4-45.2); HEMOGLOBIN 14.6 GM/dL (10.7-15.3); LYMPH % 21.4 % (8-40); MCH 30.4 pg (25.7-33.7); MEAN CELL VOLUME 89.6 fl (80-96); MEAN PLT VOLUME 10.3 fl (7.5-11.1); MONO % 7.1 % (3.8-10.2); NEUT % 69.1 % (42.8-82.8); PLATELET COUNT 228 K/MM3 (134-434); RBC 4.81 M/mm3 (3.60-5.2); RDW 13.4 % (11.6-15.6); WHITE BLOOD COUNT 16.8 K/mm3 (4.0-10.0)
[2018-09-10] MEDS ORDERED: ONDANSETRON 4 MG/2 ML VIAL ONE (02:58)
[2018-09-10 04:06] LABS: ALK PHOS 110 U/L (45-117); ANION GAP 6 MMOL/L (8-16); BILIRUBIN,TOTAL 0.4 mg/dL (0.2-1); BLOOD UREA NITROGEN 11.3 mg/dL (7-18); CALCIUM 9.6 mg/dL (8.5-10.1); CHLORIDE 109 mmol/L (98-107); CO2 25 mmol/L (21-32); CREATININE 0.7 mg/dL (0.55-1.3); GLUCOSE,RANDOM 100 mg/dL (74-106); LIPASE 85 U/L (73-393); POTASSIUM 4.6 mmol/L (3.5-5.1); SGOT/AST 32 U/L (15-37); SGPT/ALT 39 U/L (13-61); SODIUM 139 mmol/L (136-145); TOT PROT 7.2 g/dl (6.4-8.2)
[2018-09-10 04:36] LABS: EPI CELLS 2.9 /HPF (0-5/HPF); HYALINE CASTS 3 /lpf (0-8); PH,URINE 5.5 (5.0-8.0); URINE APPEARANCE CLEAR; URINE BACTERIA 9.1 /hpf (NEGATIVE); URINE BILIRUBIN NEGATIVE (NEGATIVE); URINE COLOR YELLOW; URINE GLUCOSE (UA) NEGATIVE (NEGATIVE); URINE KETONE NEGATIVE (NEGATIVE); URINE LEUK ESTERASE TRACE (NEGATIVE); URINE NITRITE NEGATIVE (NEGATIVE); URINE PROTEIN NEGATIVE (NEGATIVE); URINE RBC 2 /hpf (0-4); URINE UROBILINOGEN 0.2 mg/dL (0.2-1.0); URINE WBC 5 /hpf (0-5)
[2018-09-10] MEDS ORDERED: IBUPROFEN 600 MG TABLET (FP) PO ONE ×2 (04:54→04:57)
--- NOTE | 2018-09-13 13:48 | EKG ---
Test Reason : Blood Pressure : / mmHG Vent. Rate : 068 BPM Atrial Rate : 068 BPM P-R Int : 186 ms QRS Dur : 096 ms QT Int : 438 ms P-R-T Axes : 037 030 030 degrees QTc Int : 465 ms NORMAL SINUS RHYTHM LEFT ATRIAL ENLARGEMENT BORDERLINE ECG Confirmed by MD CARLOS, PRERNA ([id number]) on 09/13/2018 1:47:42 PM Referred By: Confirmed By:PRERNA GONZALEZ MD
== END 2018-09-10 05:11 | disposition left against medical advice (07) ==
LOC: JER 00:46
PROC: 3E033GC Introduction of Other Therapeutic Substance into Peripheral Vein, Percutaneous Approach (ICD-10-PCS; principal; 2018-09-10)
PROC: 3E0337Z Introduction of Electrolytic and Water Balance Substance into Peripheral Vein, Percutaneous Approach (ICD-10-PCS; 2018-09-10)
PROC: 3E033NZ Introduction of Analgesics, Hypnotics, Sedatives into Peripheral Vein, Percutaneous Approach (ICD-10-PCS; 2018-09-10)
DX: R10.13 Epigastric pain (principal); R07.9 Chest pain, unspecified
CPT/HCPCS: 36415; 80053; 81003; 83690; 84484; 84703; 85025; 93005; 93010; 99283-25; J0131

== ENCOUNTER 2019-11-25 08:35 | Emergency (ER) | payer OTHER ==
[2019-11-25 08:43] VITALS: BP 153/90; PULSE 78; TEMP 98.5; BMI 29.1
[2019-11-25] MEDS ORDERED: ASPIRIN 325 MG TABLET PO ONE (09:38)
[2019-11-25] MEDS ORDERED: ASPIRIN 325 MG ENTERIC COATED TABLET (FP) ONE (09:49)
[2019-11-25 10:15] LABS: BASO % 0.8 % (0-2.0); EOS % 1.6 % (0-4.5); HEMATOCRIT 43.2 % (32.4-45.2); HEMOGLOBIN 14.5 GM/dL (10.7-15.3); LYMPH % 27.6 % (8-40); MCHC 33.6 g/dl (32.0-36.0); MEAN CELL VOLUME 89.2 fl (80-96); MONO % 8.5 % (3.8-10.2); NEUT % 61.5 % (42.8-82.8); PLATELET COUNT 231 K/MM3 (134-434); RBC 4.84 M/mm3 (3.60-5.2); RDW 12.9 % (11.6-15.6); WHITE BLOOD COUNT 9.9 K/mm3 (4.0-10.0)
[2019-11-25 10:44] LABS: ALBUMIN 3.7 g/dl (3.4-5.0); ALK PHOS 115 U/L (45-117); ANION GAP 6 MMOL/L (8-16); BILIRUBIN,TOTAL 0.6 mg/dL (0.2-1); BLOOD UREA NITROGEN 14.2 mg/dL (7-18); CHLORIDE 110 mmol/L (98-107); CO2 27 mmol/L (21-32); CREATININE 0.5 mg/dL (0.55-1.3); GLUCOSE,RANDOM 95 mg/dL (74-106); MAGNESIUM 2.2 mg/dL (1.8-2.4); POTASSIUM 4.2 mmol/L (3.5-5.1); SGOT/AST 25 U/L (15-37); SGPT/ALT 57 U/L (13-61); SODIUM 142 mmol/L (136-145); TOT PROT 6.7 g/dl (6.4-8.2)
--- NOTE | 2019-11-25 10:59 | PDOC ---
History of Present Illness <Ally Hinson - Last Filed: 11/25/19 11:21> - General History Source: Patient Exam Limitations: No Limitations - History of Present Illness Initial Comments: 11/25/19 10:53 49-year-old female history of hyperlipidemia, hypertension on amlodipine 10 mg recently increased to 20 mg by PMD presents complaining of midsternal chest pain radiating to left upper extremity with slight nausea and lightheadedness since 7:30 AM today. Denies shortness of breath, diaphoresis, back pain, abdominal pain, shortness of breath, cough, fever, chills, recent illness, recent travel, trauma or any other complaints. Patient's mother at age 41 from an [place]. Patient reports normal stress test 6 months ago. Smokes tobacco 3 to 4 cigarettes daily, quit smoking marijuana 1 week ago. Denies using any other illicit substance. ROS: as above PE: GENERAL: well-appearing, NAD HEAD: NCAT EYES: Pupils equal, round and reactive to light, sclera anicteric, conjunctiva clear ENT: pharynx: no erythema, no exudate, uvula midline NECK: supple CHEST: nontender RESP: clear, no w/r/r CARDIO: rrr, no m/g/r ABD: +BS, soft, nontender, non distended BACK: no midline spinal ttp, no CVAT EXTREMITIES: Normal range of motion, no edema NEUROLOGICAL: Normal speech, normal gait SKIN: Warm, Dry Is this a multiple visit Asthma Patient?: No <Christen Patterson - Last Filed: 11/25/19 12:25> - General Chief Complaint: Chest Pain Stated Complaint: CHEST PAIN Time Seen by Provider: 11/25/19 09:15 Past History <Ally Hinson - Last Filed: 11/25/19 11:21> - Medical History COPD: No GI Disorders: Yes (GERD) HTN: Yes Hypercholesterolemia: Yes - Reproductive History Is Patient Now?: No - Immunization History Immunization Up to Date: No - Psycho-Social/Smoking History Smoking History: Current every day smoker Have you smoked in the past 12 months: Yes Number of Cigarettes Smoked Daily: 7 Information on smoking cessation initiated: No 'Breaking Loose' booklet given: 05/22/17 - Substance Abuse Hx (Audit-C & DAST Scrn) How often the patient has a drink containing alcohol: Never Score: In Men: 4 or > Positive; In Women: 3 or > Positive: 0 Screen Result (Pos requires Nsg. Audit-10AR): Negative In the last yr the pt used illegal drug/Rx for NonMed reason: No Score: Yes response is considered Positive: 0 Screen Result (Positive result requires Nsg. DAST-10): Negative <Christen Patterson - Last Filed: 11/25/19 12:25> - Medical History Allergies/Adverse Reactions: Allergies Allergy/AdvReac Type Severity Reaction Status Date / Time No Known Allergies Allergy Verified 09/10/18 01:07 Home Medications: Ambulatory Orders Amlodipine Besylate 10 mg PO DAILY 05/22/17 Atorvastatin Ca [Lipitor] 10 mg PO HS 11/25/19 Omeprazole 20 mg PO DAILY 11/25/19 *Physical Exam - Vital Signs Last Vital Signs Temp Pulse Resp BP Pulse Ox 98.5 F 78 18 153/90 98 11/25/19 08:38 11/25/19 08:38 11/25/19 08:38 11/25/19 08:38 11/25/19 08:38 <Ally Hinson - Last Filed: 11/25/19 11:21> - Vital Signs Last Vital Signs Temp Pulse Resp BP Pulse Ox 98.5 F 78 18 153/90 98 11/25/19 08:38 11/25/19 08:38 11/25/19 08:38 11/25/19 08:38 11/25/19 08:38 <Christen Patterson - Last Filed: 11/25/19 12:25> Heart Score/ECG Review - History History: Moderately suspicious - Electrocardiogram EKG: Normal - Age Age: 45-65 - Risk Factors Risk Factors Heart Score: Yes Hx Hypercholesterolemia, Yes Hx Hypertension, Yes Smoking History, Yes Positive family hx of cardiac disease Based on the list above the patient has:: >/=3 risk factors or Hx atherosclerotic disease - Troponin Troponin: </= normal limit - Score Heart Score - Total: 4 <Ally Hinson - Last Filed: 11/25/19 11:21> ED Treatment Course - LABORATORY CBC & Chemistry Diagram: 11/25/19 09:40 11/25/19 09:40 - ADDITIONAL ORDERS Additional order review: Laboratory Results 11/25/19 09:40 Sodium 142 Potassium 4.2 Chloride 110 H Carbon Dioxide 27 Anion Gap 6 L BUN 14.2 Creatinine 0.5 L Est GFR (CKD-EPI)AfAm 131.72 Est GFR (CKD-EPI)NonAf 113.65 Random Glucose 95 Calcium 9.0 Magnesium 2.2 Total Bilirubin 0.6 AST 25 ALT 57 Alkaline Phosphatase 115 Troponin I < 0.02 Total Protein 6.7 Albumin 3.7 11/25/19 09:40 RBC 4.84 MCV 89.2 MCHC 33.6 RDW 12.9 MPV 10.0 Neutrophils % 61.5 Lymphocytes % 27.6 D Monocytes % 8.5 Eosinophils % 1.6 Basophils % 0.8 - Medications Given in the ED: ED Medications Discontinued Medications Generic Name Dose Route Start Last Admin Trade Name Freq PRN Reason Stop Dose Admin Aspirin 325 mg 11/25/19 09:38 11/25/19 09:54 Asa - PO 11/25/19 09:39 325 mg ONCE ONE Administration <Ally Hinson - Last Filed: 11/25/19 11:21> - LABORATORY CBC & Chemistry Diagram: 11/25/19 09:40 11/25/19 09:40 - ADDITIONAL ORDERS Additional order review: Laboratory Results 11/25/19 09:40 Sodium 142 Potassium 4.2 Chloride 110 H Carbon Dioxide 27 Anion Gap 6 L BUN 14.2 Creatinine 0.5 L Est GFR (CKD-EPI)AfAm 131.72 Est GFR (CKD-EPI)NonAf 113.65 Random Glucose 95 Calcium 9.0 Magnesium 2.2 Total Bilirubin 0.6 AST 25 ALT 57 Alkaline Phosphatase 115 Troponin I < 0.02 Total Protein 6.7 Albumin 3.7 11/25/19 09:40 RBC 4.84 MCV 89.2 MCHC 33.6 RDW 12.9 MPV 10.0 Neutrophils % 61.5 Lymphocytes % 27.6 D Monocytes % 8.5 Eosinophils % 1.6 Basophils % 0.8 - RADIOLOGY Radiology Studies Ordered: Category Date Time Status CHEST PA & LAT [RAD] Stat Radiology 11/25/19 09:37 Completed - Medications Given in the ED: ED Medications Discontinued Medications Generic Name Dose Route Start Last Admin Trade Name Freq PRN Reason Stop Dose Admin Aspirin 325 mg 11/25/19 09:38 11/25/19 09:54 Asa - PO 11/25/19 09:39 325 mg ONCE ONE Administration <Christen Patterson - Last Filed: 11/25/19 12:25> Medical Decision Making - Medical Decision Making 11/25/19 10:58 49-year-old female history of hyperlipidemia, hypertension on amlodipine 10 mg recently increased to 20 mg by PMD presents complaining of midsternal chest pain radiating to left upper extremity with slight nausea and lightheadedness since 7:30 AM today. Denies shortness of breath, diaphoresis, back pain, abdominal pain, shortness of breath, cough, fever, chills, recent illness, recent travel, trauma or any other complaints. Patient's mother at age 41 from an [place]. Patient reports normal stress test 6 months ago. Smokes tobacco 3 to 4 cigarettes daily, quit smoking marijuana 1 week ago. Denies using any other illicit substance. 11/25/19 12:19 ecg: HR 74, nsr, no st or tw changes cxr: unremarkable trop neg Patient walked out of the ED after evaluation, she did not wait for me to discuss her results and plan for admission 11/25/19 12:24 I called patient's cell phone number and left a voice message <Christen Patterson - Last Filed: 11/25/19 12:25> Discharge <Ally Hinson - Last Filed: 11/25/19 11:21> - Discharge Information Problems reviewed: Yes <Christen Patterson - Last Filed: 11/25/19 12:25> - Discharge Information Clinical Impression/Diagnosis: Chest pain Qualifiers: Chest pain type: unspecified Qualified Code(s): R07.9 - Chest pain, unspecified Condition: Stable Disposition: ELOPED - Follow up/Referral Referrals: Jocelyn Dunbar [Primary Care Provider] - - Patient Discharge Instructions - Post Discharge Activity
--- NOTE | 2019-11-26 12:40 | EKG ---
Test Reason : Blood Pressure : / mmHG Vent. Rate : 074 BPM Atrial Rate : 074 BPM P-R Int : 158 ms QRS Dur : 086 ms QT Int : 404 ms P-R-T Axes : 027 036 037 degrees QTc Int : 448 ms NORMAL SINUS RHYTHM NORMAL ECG WHEN COMPARED WITH ECG OF 10-SEP-2018 00:54, NO SIGNIFICANT CHANGE WAS FOUND Confirmed by CLAUDE MORRIS MD ([id number]) on 11/26/2019 12:40:33 PM Referred By: Confirmed By:CLAUDE MORRIS MD
== END 2019-11-25 13:00 | disposition left against medical advice (07) ==
LOC: JER 08:35
DX: R07.9 Chest pain, unspecified (principal)
CPT/HCPCS: 36415; 71046-TC-FY; 80053; 83735; 84484; 85025; 93005; 93010; 99285-25

== ENCOUNTER 2020-05-24 06:19 | Emergency (ER) | payer OTHER ==
[2020-05-24 07:08] VITALS: BP 160/79; PULSE 83; TEMP 97.9; BMI 29.1
[2020-05-24] MEDS ORDERED: ACETAMINOPHEN/CAFFEINE/BUTALBITAL 1 TAB PO ONE (07:42)
[2020-05-24] MEDS ORDERED: METOCLOPRAMIDE HCL 10 MG TABLET (FP) PO ONE ×2 (07:43→07:56)
[2020-05-24] MEDS ORDERED: ACETAMINOPHEN/CAFFEINE/BUTALBITAL 1 TAB ONE (07:56)
[2020-05-24] MEDS ORDERED: KETOROLAC TROMETHAMINE 30 MG/1 ML VIAL IM ONE (09:14)
[2020-05-24] MEDS ORDERED: METHOCARBAMOL 500 MG TABLET PO ONE (09:14)
[2020-05-24] MEDS ORDERED: METHOCARBAMOL 500 MG TABLET ONE (09:19)
[2020-05-24] MEDS ORDERED: KETOROLAC TROMETHAMINE 30 MG/1 ML VIAL ONE (09:19)
== END 2020-05-24 10:14 | disposition home or self-care (01) ==
LOC: JER 06:19
PROC: 3E0233Z Introduction of Anti-inflammatory into Muscle, Percutaneous Approach (ICD-10-PCS; principal; 2020-05-24)
DX: R51.9 Headache, unspecified (principal); M79.10 Myalgia, unspecified site
CPT/HCPCS: 70450-TC; 96372; 99284-25

== ENCOUNTER 2024-05-28 09:47 | Emergency (ER) | payer OTHER ==
[2024-05-28 10:10] VITALS: BP 123/78; PULSE 70; RESP 16; TEMP 98.2; BMI 31.1
[2024-05-28] MEDS ORDERED: DIPHTH,PERTUSS(ACELL),TET 0.5 ML DISP.SYRIN IM ONE (10:25)
[2024-05-28] MEDS: DIPHTH,PERTUSS(ACELL),TET 0.5 ML DISP.SYRIN IM ONE (10:28)
== END 2024-05-28 10:47 | disposition home or self-care (01) ==
LOC: JERFT 09:47
PROC: 3E0234Z Introduction of Serum, Toxoid and Vaccine into Muscle, Percutaneous Approach (ICD-10-PCS; principal; 2024-05-28)
DX: S61.432A Puncture wound without foreign body of left hand, initial encounter (principal); Z23 Encounter for immunization; W55.01XA Bitten by cat, initial encounter
CPT/HCPCS: 90471; 90715; 99284-25